=== PATIENT | male | born 2000 | race Native Hawaiian/Other Pacific Islander ===

== ENCOUNTER 2020-02-21 18:02 | Emergency (ER) | payer OTHER ==
[~2020-02-21] VITALS: Ht 162.6 cm; Wt 79.4 kg
[2020-02-21] MEDS ORDERED: KEFLEX500 M1 PO (19:38)
[2020-02-21 19:46] VITALS: BP 125/82
== END 2020-02-21 19:47 | disposition home or self-care (01) ==
LOC: ER 18:02
DX: S61.216A Laceration without foreign body of right little finger without damage to nail, initial encounter (principal); W26.8XXA Contact with other sharp object(s), not elsewhere classified, initial encounter; Y93.89 Activity, other specified; Y92.89 Other specified places as the place of occurrence of the external cause; Y99.8 Other external cause status

== ENCOUNTER → 2020-02-29 | Outpatient (CLI) | payer OTHER ==
[~2020-02-29] MED LIST: KEFLEX500 M1 PO
== END ==
LOC: LAB 10:21
PROVIDERS: ATTEND Orthopaedic Surgery Hand Surgery
DX: Z01.812 Encounter for preprocedural laboratory examination (principal); Z20.822 Contact with and (suspected) exposure to COVID-19

== ENCOUNTER → 2020-03-03 | Day surgery (SDC) | payer OTHER ==
[~2020-03-03] VITALS: Ht 165.1 cm; Wt 79.4 kg
[~2020-03-03] MED LIST changes: +OXYCODONE PO
== END | disposition home or self-care (01) ==
LOC: OR
PROVIDERS: ATTEND Orthopaedic Surgery Hand Surgery
DX: S61.206A Unspecified open wound of right little finger without damage to nail, initial encounter (principal); Z53.8 Procedure and treatment not carried out for other reasons; F17.210 Nicotine dependence, cigarettes, uncomplicated; X58.XXXA Exposure to other specified factors, initial encounter; Y93.89 Activity, other specified; Y92.89 Other specified places as the place of occurrence of the external cause; Y99.8 Other external cause status

== ENCOUNTER → 2020-03-04 | Day surgery (SDC) | payer OTHER ==
[~2020-03-04] VITALS: Ht 165.1 cm; Wt 78.9 kg
--- NOTE | ~2020-03-04 | O ---
[facility] [place] [address] OPERATIVE REPORT Name: NATE DINERO Room #: REG [facility] M..#: [id number] Admission: 03/04/20 Attend Phys: Teresa Miller, Discharge: Date of : 89 Report #: [id number] THIS REPORT FOR: cc: FAM - No family physician/PCP FAM - No family physician/PCP Teresa Miller MD ~ DATE OF SERVICE: 03/04/2020 PREOPERATIVE DIAGNOSIS: Right small finger probable radial digital nerve transection and possible tendon transections. POSTOPERATIVE DIAGNOSIS: Right small finger radial digital nerve transection. PROCEDURE PERFORMED: Right small finger radial digital nerve reconstruction using allograft nerve[place] [address]. SURGEON: Teresa Miller MD ANESTHESIA: General mask anesthesia. ESTIMATED BLOOD LOSS: 1 mL. TOURNIQUET TIME: 58 minutes. COMPLICATIONS: None. CONDITION: Stable. DISPOSITION: Recovery room. IMPLANTS USED: AxoGen 1-2 mm nerve allograft with a 2 mm nerve tube as connector. INDICATIONS: The patient is a 19-year-old male with the above-mentioned diagnosis. He elects for operative treatment. The risks, benefits, alternatives and complications were discussed including but not limited to incomplete relief, infection, damage to vessels or nerves, worsening of any symptoms and stiffness. Informed consent was obtained. The correct extremity was identified and labeled by myself after verbal confirmation of the patient as well as visual confirmation and signed informed consent. DESCRIPTION OF PROCEDURE: The patient was brought back to the operating room and placed on a supine position. He received preoperative antibiotics. Tourniquet was placed over padding on the patient's right upper extremity. The extremity was sterilely prepped and draped in the usual fashion. Final timeout [facility] [address] [place] [address] OPERATIVE REPORT Name: NATE DINERO Room #: REG [facility]..#: [id number] Admission: 03/04/20 Attend Phys: Teresa Miller, Discharge: Date of : 89 Report #: [id number] was taken to verify correct patient, operative procedure, operative site, all concurred. The arm was elevated, exsanguinated and tourniquet inflated. The entire procedure was done with aid of a 3.5 loupe magnification. Next, the sutures were removed. The prior wound was explored and there was obviously a complete transection of the radial digital nerve. The tendon sheath was completely intact. The wound was then extended both proximally and distally in order to locate the nerve endings. The nerve endings were easily found and debrided with a sharp 11 blade to healthy nerve ends. Once this was done, there was approximately 1 cm gap and so a 1-2 mm allograft nerve was thawed on the back table. It was then sutured using microsurgical techniques and a 9-0 nylon suture, taking care to avoid any tension, a 2 mm tube was then cut into two and sutured over each juncture site as a connector. It was sutured to the epineurium. Next, the repair sites looked excellent. There was no increased tension. The wound was thoroughly irrigated. The skin was closed with 4-0 nylon suture. Wound was dressed with Adaptic and sterile gauze. He was placed in a bulky dressing and a dorsal slab splint with the fingers slightly flexed, the base of the small finger proximal to the repair site. Approximately 3 mL of 0. 25% Marcaine was injected subcutaneously. All sponge and needle counts were correct. The patient was transferred to postoperative room in stable condition. All fingers were pink with brisk capillary refill at the conclusion of case after deflation of tourniquet.. By: [id number] Teresa Miller MD /nt
[2020-03-04 12:45] VITALS: BP 122/76
[2020-03-04 15:41] VITALS: BP 122/76
== END | disposition home or self-care (01) ==
LOC: OR 12:09
PROVIDERS: ATTEND Orthopaedic Surgery Hand Surgery
DX: S64.496A Injury of digital nerve of right little finger, initial encounter (principal); M79.644 Pain in right finger(s); F17.210 Nicotine dependence, cigarettes, uncomplicated; X58.XXXA Exposure to other specified factors, initial encounter; Y93.89 Activity, other specified; Y92.89 Other specified places as the place of occurrence of the external cause; Y99.8 Other external cause status
CPT/HCPCS: 50010; 50101; 50386; 56526; 56532; 57006; 57091; 57148; 57178; 58490; 62110; 62900; 70005